=== PATIENT | female | born 1995 | race Hispanic/Latino ===

== ENCOUNTER 2020-09-25 10:22 | Emergency (ER) | payer OTHER ==
[~2020-09-25] VITALS: Ht 152.7 cm; Wt 54.4 kg
[2020-09-25 10:46] LABS: BASOPHILS % (AUTO) 0.4 % (0.0-5.0); EOSINOPHILS % (AUTO) 3.1 % (0.0-8.0); HEMATOCRIT 41.4 % (36-48); LYMPHOCYTES % (AUTO) 28.4 % (21.0-51.0); MEAN CORPUSCULAR HGB CONC 33.6 g/dL (32.0-36.0); MEAN CORPUSCULAR VOLUME 86.3 fL (79-99); MONOCYTES % (AUTO) 8.8 % (3.0-13.0); NEUTROPHILS % (AUTO) 58.9 % (40.0-77.0); PLATELET COUNT (AUTO) 201 K/uL (130-400); RED CELL DISTRIBUTION WIDTH 12.4 % (11.0-15.5); WHITE BLOOD COUNT (AUTO) 5.5 K/uL (4.8-10.8)
[2020-09-25 10:57] LABS: CREATININE 0.6 mg/dL (0.5-1.5); INR 1.06 (0.85-1.15); POTASSIUM 3.5 mmol/L (3.5-5.1); PROTHROMBIN TIME 11.5 SEC (9.6-11.6)
[2020-09-25 10:58] LABS: PARTIAL THROMBOPLASTIN TIME 25.3 SEC (26.3-35.5)
[2020-09-25 11:01] LABS: ALBUMIN 3.9 g/dL (3.5-5.0); BILIRUBIN,TOTAL 0.6 mg/dL (0.2-1.0)
[2020-09-25 11:08] LABS: B-TYPE NATRIURETIC PEPTIDE 8 pg/mL (0-100)
[2020-09-25] MEDS ORDERED: MAG/ALUM/SIMETH 30 ML UDCUP PO ONE (12:00)
[2020-09-25] MEDS ORDERED: HYDROCODONE/ACETAMINOPHEN 5/325 MG TAB PO ONE (12:00)
[2020-09-25 12:41] VITALS: BP 110/70
[2020-09-25] MEDS ORDERED: ACET1TAB25 PO (13:39)
== END 2020-09-25 14:25 | disposition home or self-care (01) ==
LOC: EDH 10:22
DX: M94.0 Chondrocostal junction syndrome [Tietze] (principal)
CPT/HCPCS: 36415; 71045; 80053; 83880; 84484; 85025; 85610; 85730; 93005

== ENCOUNTER 2023-04-16 10:53 | Emergency (ER) | payer OTHER ==
[~2023-04-16 10:53] MED LIST: ACET-2079 PO
== END 2023-04-16 11:52 | disposition left against medical advice (07) ==
LOC: EDH 10:53
DX: R10.9 Unspecified abdominal pain (principal); Z53.21 Procedure and treatment not carried out due to patient leaving prior to being seen by health care provider